=== PATIENT | female | born 1965 | race Caucasian/White ===

== ENCOUNTER 2018-05-05 09:59 | Emergency (ER) | END 2018-05-05 11:07 | disposition home or self-care (01) ==

== ENCOUNTER 2018-10-26 04:10 | Emergency (ER) | payer OTHER ==
[~2018-10-26] VITALS: Ht 160 cm; Wt 55.7 kg
[~2018-10-26 04:10] MED LIST: AZIT250T PO; D-ME473S2 PO
[2018-10-26 04:12] VITALS: BP 141/76; PULSE 89; RESP 16; Ht 160 cm; Wt 55.7 kg
[2018-10-26] MEDS ORDERED: HYDR28.334 TP (05:10)
[2018-10-26] MEDS ORDERED: CETI10CA PO (05:10)
[2018-10-26] MEDS ORDERED: BEN50 PO (05:10)
--- NOTE | 2018-10-26 05:35 | ERD ---
ER Documentation Chief Complaint Chief Complaint skin rash to bilateral arms and neck with SOB x 3hrs HPI 52-year-old male past medical history of GERD presents for skin rash on the bilateral arms and neck x3 hours. She states that she went to sleep and woke up with an itchiness feeling. She then noticed that she had a rash. The rash was initially described as elevated, like hives. However the patient states that the rash is more flat now and the itchiness has decreased somewhat. She denies any fevers or chills. Denies chest pain or cough. Denies shortness of breath. No other modifying factors noted. No treatments tried at home. ROS All systems reviewed and are negative except as per history of present illness. Medications Home Meds Active Scripts Hydrocortisone (Hydrocortisone Cr) 28.35 Gm Cr, 28.35 GM TP BID PRN for ITCHING for 7 Days, #1 TUBE Prov:MELONIE SARGENT DO 10/26/18 Cetirizine Hcl* (Zyrtec*) 10 Mg Capsule, 10 MG PO DAILY PRN for ITCHING, #30 TAB Prov:MELONIE SARGENT DO 10/26/18 Diphenhydramine Hcl* (Benadryl*) 50 Mg Cap, 50 MG PO Q6 PRN for ITCHING, #30 CAP Prov:MELONIE SARGENT DO 10/26/18 Dextromethorphan Hb-Promethazine Hcl* (Promethazine DM* Syrup) 473 Ml Syrup, 5 ML PO Q6 PRN for COUGH for 5 Days, ML Prov:SEUN MILLS MD 05/05/18 Azithromycin* (Zithromax*) 250 Mg Tablet, 250 MG PO .ZPACK DIRECTED, #6 TAB TAKE 500 MG (2 TABS) THE FIRST DAY THEN 250 MG (1 TAB) DAYS 2-5 Prov:SEUN MILLS MD 05/05/18 Allergies Allergies: Coded Allergies: No Known Allergy (Unverified , 10/26/18) PMhx/Soc Medical and Surgical Hx: pt denies Surgical Hx History of Surgery: No Anesthesia Reaction: No Hx Neurological Disorder: No Hx Respiratory Disorders: No Hx Cardiac Disorders: No Hx Psychiatric Problems: No Hx Miscellaneous Medical Probl: Yes (GERD) Hx Alcohol Use: No Hx Substance Use: No Hx Tobacco Use: No Smoking Status: Never smoker FmHx Family History: No coronary disease Physical Exam Vitals Vital Signs Date Temp Pulse Resp B/P (MAP) Pulse Ox O2 O2 Flow FiO2 Time Delivery Rate 10/26/18 98.2 89 16 141/76 98 04:12 (97) Physical Exam Const: No acute distress Head: Atraumatic Eyes: Normal Conjunctiva ENT: Normal External Ears, Nose and Mouth. No tongue swelling noted Neck: Full range of motion. No meningismus. Resp: Clear to auscultation bilaterally, patient speaking in full sentences Cardio: Regular rate and rhythm, no murmurs Skin: Macular papular rash noted over the bilateral upper arms and neck area Ext: No cyanosis, or edema Neur: Awake and alert Psych: Normal Mood and Affect Procedures/MDM Medical Decision Making: Differential diagnosis includes but not limited to allergic reaction, dermatitis, cellulitis, viral syndrome Patient appeared well on physical exam. No acute distress, speaking in full sentences, there is no tongue swelling Physical examination consistent with an allergic reaction Prescription(s): Patient given prescription for supportive medication(s). Patient advised to follow up with PCP in 1-2 days. Patient advised to return to ED for new or worsening symptoms. Patient stable on discharge from the ED. Disclaimer: Inadvertent spelling and grammatical errors are likely due to EHR/d ictation software use and do not reflect on the overall quality of patient care. Also, please note that the electronic time recorded on this note does not necessarily reflect the actual time of the patient encounter. Departure Diagnosis: Primary Impression: Rash Condition: Fair Patient Instructions: Self-Care for Skin Rashes, Allergic Reaction, Other (General) Referrals: ON LICENSE OF [facility] YOU HAVE RECEIVED A MEDICAL SCREENING EXAM AND THE RESULTS INDICATE THAT YOU DO NOT HAVE A CONDITION THAT REQUIRES URGENT TREATMENT IN THE EMERGENCY DEPARTMENT. FURTHER EVALUATION AND TREATMENT OF YOUR CONDITION CAN WAIT UNTIL YOU ARE SEEN IN YOUR DOCTORS OFFICE WITHIN THE NEXT 1-2 DAYS. IT IS YOUR RESPONSIBILITY TO MAKE AN APPOINTMENT FOR FOLOW-UP CARE. IF YOU HAVE A PRIMARY DOCTOR --you should call your primary doctor and schedule an appointment IF YOU DO NOT HAVE A PRIMARY DOCTOR YOU CAN CALL OUR PHYSICIAN REFERRAL HOTLINE AT IF YOU CAN NOT AFFORD TO SEE A PHYSICIAN YOU CAN CHOSE FROM THE FOLLOWING [facility] [address] [facility]. [facility] [address] [facility] [address] [facility] [facility] [address] [facility] [facility] [address] [facility]. [facility] [address] Additional Instructions: Call your primary care doctor TOMORROW for an appointment during the next 1-2 days.See the doctor sooner or return here if your condition worsens before your appointment time. MELONIE SARGENT DO October 26, 2018 05:35
[2018-10-26] MEDS ORDERED: PRED20TA PO (23:31)
== END 2018-10-26 06:06 | disposition home or self-care (01) ==
LOC: FTE 04:10
DX: R21 Rash and other nonspecific skin eruption (principal)
CPT/HCPCS: 99283

== ENCOUNTER 2018-10-26 20:58 | Emergency (ER) | payer OTHER ==
[~2018-10-26] VITALS: Wt 57.1 kg
[~2018-10-26 20:58] MED LIST changes: +BEN50 PO; +CETI10CA PO; +HYDR28.334 TP
[2018-10-26 21:00] VITALS: BP 120/68; PULSE 83; RESP 18
[2018-10-26] MEDS ORDERED: DEXAMETHASONE 10 MG/ML 1 ML INJ IM ONE (23:30)
[2018-10-26] MEDS ORDERED: DIPHENHYDRAMINE 50 MG INJ IM ONE (23:30)
[2018-10-26] MEDS ORDERED: PRED20TA PO (23:31)
--- NOTE | 2018-10-26 23:34 | ERD ---
ER Documentation Chief Complaint Chief Complaint SKIN RASH, SEEN YESTERDAY. RASH IS WORSE TODAY HPI 52-year-old female presents with a itchy rash for the last 2 to 3 days. She was seen here yesterday and prescribed Benadryl and Zyrtec. She denies any new foods or medications or known potential allergens. She denies fevers, shortness of breath, chest pain, vomiting, abdominal pain, additional symptoms. ROS All systems reviewed and are negative except as per history of present illness. Medications Home Meds Active Scripts Prednisone* (Prednisone*) 20 Mg Tab, 40 MG PO DAILY for 4 Days, TAB Start October 27, 2018 Prov:SEUN MILLS MD 10/26/18 Hydrocortisone (Hydrocortisone Cr) 28.35 Gm Cr, 28.35 GM TP BID PRN for ITCHING for 7 Days, #1 TUBE Prov:MELONIE SARGENT DO 10/26/18 Cetirizine Hcl* (Zyrtec*) 10 Mg Capsule, 10 MG PO DAILY PRN for ITCHING, #30 TAB Prov:MELONIE SARGENT DO 10/26/18 Diphenhydramine Hcl* (Benadryl*) 50 Mg Cap, 50 MG PO Q6 PRN for ITCHING, #30 CAP Prov:MELONIE SARGENT DO 10/26/18 Dextromethorphan Hb-Promethazine Hcl* (Promethazine DM* Syrup) 473 Ml Syrup, 5 ML PO Q6 PRN for COUGH for 5 Days, ML Prov:SEUN MILLS MD 05/05/18 Azithromycin* (Zithromax*) 250 Mg Tablet, 250 MG PO .GelyPACK DIRECTED, #6 TAB TAKE 500 MG (2 TABS) THE FIRST DAY THEN 250 MG (1 TAB) DAYS 2-5 Prov:SEUN MILLS MD 05/05/18 Allergies Allergies: Coded Allergies: No Known Allergy (Unverified , 10/26/18) PMhx/Soc History of Surgery: No Anesthesia Reaction: No Hx Neurological Disorder: No Hx Respiratory Disorders: No Hx Cardiac Disorders: No Hx Psychiatric Problems: No Hx Miscellaneous Medical Probl: Yes (GERD) Hx Alcohol Use: No Hx Substance Use: No Hx Tobacco Use: No FmHx Family History: No diabetes, No coronary disease, No other Physical Exam Vitals Vital Signs Date Temp Pulse Resp B/P (MAP) Pulse Ox O2 O2 Flow FiO2 Time Delivery Rate 10/26/18 98.6 83 18 120/68 99 21:00 (85) Physical Exam Const: No acute distress Head: Atraumatic Eyes: Normal Conjunctiva ENT: Normal External Ears, Nose and Mouth. Neck: Full range of motion. No meningismus. Resp: Clear to auscultation bilaterally Cardio: Regular rate and rhythm, no murmurs Abd: Soft, non tender, non distended. Normal bowel sounds Skin: No petechiae or purpura. Blanching wheals on the trunk and extremities. No induration, streaking, vesicles. Back: No midline or flank tenderness Ext: No cyanosis, or edema Neur: Awake and alert Psych: Normal Mood and Affect Results 24 hrs Current Medications Medications Dose Sig/Milagro Start Time Status Last (Trade) Ordered Route PRN Stop Time Admin Dose Reason Admin 10 mg ONCE ONCE 10/26/18 DC 10/26/18 Dexamethasone IM 23:30 23:55 (Decadron) 10/26/18 23:31 25 mg ONCE ONCE 10/26/18 DC 10/26/18 Diphenhydrami IM 23:30 23:55 ne HCl 10/26/18 23:31 (Benadryl) Procedures/MDM Patient presents with an urticarial type rash without signs of an cellulitis, anaphylaxis, purpura, life-threatening rashes. She will be treated with Decadron 10 mg IM, Benadryl 25 mg IM, short course of prednisone at home, continuation of Benadryl, and current medications and primary care follow-up and return precautions. The patient was stable with no new complaints during the ER course. Clinically, there is no current evidence to suggest meningitis, sepsis, acute abdomen, pneumonia, stroke, acute coronary syndrome, pulmonary embolism, aortic dissection or any other emergent condition appearing to require further evaluation or hospitalization. Patient counseled regarding my diagnostic impression and care plan. Prior to discharge all questions answered. Pt agrees with treatment plan and understands strict return precautions. Pt is instructed to follow up with primary care provider within 24-48 hours. Precautionary instructions provided including instructions to return to the ER if not improving or for any worsening or changing symptoms or concerns. Disclaimer: Inadvertent spelling and grammatical errors are likely due to EHR/dictation software use and do not reflect on the overall quality of patient care. Also, please note that the electronic time recorded on this note does not necessarily reflect the actual time of the patient encounter. Departure Diagnosis: Primary Impression: Rash Condition: Stable Patient Instructions: Hives Referrals: DOCTOR,NOT ON STAFF (PCP) Additional Instructions: probabalamente un allergia. Cheque otro vez con [facility] doctor primario en el proximo neal or regresa para mas o nueva simptomas. continua la receta que tiene tambien SEUN MILLS MD October 26, 2018 23:34
== END 2018-10-27 00:08 | disposition home or self-care (01) ==
LOC: FTE 20:58
DX: L50.9 Urticaria, unspecified (principal)
CPT/HCPCS: 96372; J1100; J1200; Z7502

== ENCOUNTER 2018-11-12 19:56 | Emergency (ER) | payer OTHER ==
[~2018-11-12] VITALS: Wt 57.9 kg
[~2018-11-12 19:56] MED LIST changes: +PRED20TA PO
[2018-11-12] MEDS ORDERED: DEXAMETHASONE 10 MG/ML 1 ML INJ IM ONE (21:30)
[2018-11-12] MEDS ORDERED: DIPHENHYDRAMINE 50 MG INJ IM ONE (21:30)
[2018-11-12] MEDS ORDERED: CETI10CA PO (21:46)
[2018-11-12] MEDS ORDERED: PRED20TA PO (21:47)
[2018-11-12] MEDS ORDERED: FAMO-96 PO (21:47)
--- NOTE | 2018-11-12 21:53 | ERD ---
ER Documentation Chief Complaint Chief Complaint ALLERGIC REACTION; SEEN IN CLINIC YESTERDAY, RASH REAPPEARED HPI 52-year-old female presents with intermittent itchy rash for the last 2 weeks. She was seen by me 2 weeks ago and diagnosed with urticaria. She responds well to antihistamines and steroids the rash returns. She is currently taking amoxicillin and baclofen. She has itchiness in her throat but denies shortness of breath, previous allergies. Initially she was eating salmon but she denies any known current potential allergens. May have eaten some seafood a few days ago. ROS All systems reviewed and are negative except as per history of present illness. Medications Home Meds Active Scripts Prednisone* (Prednisone*) 20 Mg Tab, 40 MG PO DAILY for 10 Days, #15 TAB 40 mg by mouth for 5 days then 20 mg by mouth for 5 days. Prov:SEUN MILLS MD 11/12/18 Famotidine* (Pepcid*) 20 Mg Tablet, 20 MG PO qday for 30 Days, TAB Prov:SEUN MILLS MD 11/12/18 Cetirizine Hcl* (Zyrtec*) 10 Mg Capsule, 10 MG PO DAILY, #30 TAB.CHEW Prov:SEUN MILLS MD 11/12/18 Prednisone* (Prednisone*) 20 Mg Tab, 40 MG PO DAILY for 4 Days, TAB Start October 27, 2018 Prov:SEUN MILLS MD 10/26/18 Hydrocortisone (Hydrocortisone Cr) 28.35 Gm Cr, 28.35 GM TP BID PRN for ITCHING for 7 Days, #1 TUBE Prov:MELONIE SARGENT DO 10/26/18 Cetirizine Hcl* (Zyrtec*) 10 Mg Capsule, 10 MG PO DAILY PRN for ITCHING, #30 TAB Prov:MELONIE SARGENT DO 10/26/18 Diphenhydramine Hcl* (Benadryl*) 50 Mg Cap, 50 MG PO Q6 PRN for ITCHING, #30 CAP Prov:MELONIE SARGENT DO 10/26/18 Dextromethorphan Hb-Promethazine Hcl* (Promethazine DM* Syrup) 473 Ml Syrup, 5 ML PO Q6 PRN for COUGH for 5 Days, ML Prov:SEUN MILLS MD 05/05/18 Azithromycin* (Zithromax*) 250 Mg Tablet, 250 MG PO .ZPACK DIRECTED, #6 TAB TAKE 500 MG (2 TABS) THE FIRST DAY THEN 250 MG (1 TAB) DAYS 2-5 Prov:SEUN MILLS MD 05/05/18 Allergies Allergies: Coded Allergies: No Known Allergy (Unverified , 10/26/18) PMhx/Soc Medical and Surgical Hx: pt denies Medical Hx, pt denies Surgical Hx History of Surgery: No Anesthesia Reaction: No Hx Neurological Disorder: No Hx Respiratory Disorders: No Hx Cardiac Disorders: No Hx Psychiatric Problems: No Hx Miscellaneous Medical Probl: Yes (GERD) Hx Alcohol Use: No Hx Substance Use: No Hx Tobacco Use: No FmHx Family History: No diabetes, No coronary disease, No other Physical Exam Vitals Vital Signs Date Temp Pulse Resp B/P (MAP) Pulse Ox O2 O2 Flow FiO2 Time Delivery Rate 11/12/18 97.9 99 18 99 20:01 Physical Exam Const: No acute distress Head: Atraumatic Eyes: Normal Conjunctiva ENT: Normal External Ears, Nose and Mouth. Airway patent. Neck: Full range of motion. No meningismus. Resp: Clear to auscultation bilaterally Cardio: Regular rate and rhythm, no murmurs Abd: Soft, non tender, non distended. Normal bowel sounds Skin: No petechiae or purpura. Diffuse wheals on trunk and extremities. Back: No midline or flank tenderness Ext: No cyanosis, or edema Neur: Awake and alert Psych: Normal Mood and Affect Results 24 hrs Current Medications Medications Dose Sig/Milagro Start Time Status Last (Trade) Ordered Route PRN Stop Time Admin Dose Reason Admin 10 mg ONCE ONCE 11/12/18 DC 11/12/18 Dexamethasone IM 21:30 21:38 (Decadron) 11/12/18 21:31 50 mg ONCE ONCE 11/12/18 DC 11/12/18 Diphenhydrami IM 21:30 21:38 ne HCl 11/12/18 21:31 (Benadryl) Procedures/MDM Patient presents with signs of acute urticaria without signs of anaphylaxis, cellulitis, bacterial infection, airway obstruction wheezing. She is given Decadron 10 mg IM, Benadryl 50 mg IM. Patient likely has allergic reaction of unspecified etiology. She will be recommended to stop amoxicillin and baclofen as she has no signs of bacterial infection. Will treat with a prednisone taper, Pepcid, Zyrtec, recommendations for primary care follow-up and allergy testing. She is advised she denies any needs authorization from primary doctor but was given resources on the last. Patient had improvement in rash after observation and treatment. Patient is advised to return for worsening rash, shortness of breath, fevers, new worsening symptoms otherwise with primary doctor and front desk coordinator as directed. The patient was stable with no new complaints during the ER course. Clinically, there is no current evidence to suggest meningitis, sepsis, acute abdomen, pneumonia, stroke, acute coronary syndrome, pulmonary embolism, aortic dissection or any other emergent condition appearing to require further evaluation or hospitalization. Patient counseled regarding my diagnostic impression and care plan. Prior to discharge all questions answered. Pt agrees with treatment plan and understands strict return precautions. Pt is instructed to follow up with primary care provider within 24-48 hours. Precautionary instructions provided including instructions to return to the ER if not improving or for any worsening or changing symptoms or concerns. Disclaimer: Inadvertent spelling and grammatical errors are likely due to EHR/dictation software use and do not reflect on the overall quality of patient care. Also, please note that the electronic time recorded on this note does not necessarily reflect the actual time of the patient encounter. Departure Diagnosis: Primary Impression: Hives Additional Impression: Allergic reaction Encounter type: initial encounter Qualified Codes: T78.40XA - Allergy, unspecified, initial encounter Condition: Stable Patient Instructions: Allergic Reaction, Other (General), Hives Additional Instructions: recomiendo examines de allergias. recomiendo no juan carlos otor medicina, solo medicina para allergia. Va al [facility] doctor/ specialista para mas evaluacon en el proximo semana. posiblemente necesita autorizado de [facility] doctor primario para specialista. Regresa para fiebre, o mas o nueva simptomas.. SEUN MILLS MD November 12, 2018 21:53
[2018-11-12] MEDS ORDERED: FAMOTIDINE 20 MG TAB PO ONE (22:00)
[2018-11-12 22:57] VITALS: BP 114/71; PULSE 66; RESP 18
== END 2018-11-12 22:58 | disposition home or self-care (01) ==
LOC: FTE 19:56
DX: L50.9 Urticaria, unspecified (principal)
CPT/HCPCS: 96372; J1100; J1200; Z7502; Z7610